=== PATIENT | male | born 1995 | race African-American/Black ===

== ENCOUNTER 2016-10-06 22:36 | Emergency (ER) | payer BC, OTHER ==
--- NOTE | 2016-10-07 00:52 | PDOC ---
History of Present Illness - History of Present Illness Initial Comments: 10/07/16 00:54 The patient is a 20 year old male, with a significant past medical history of heroin abuse, who presents to the emergency department requesting detox from heroin this evening. The patient reports his last heroin use was yesterday. He denies chest pain, shortness of breath, headache and dizziness. He denies fever, chills, nausea, vomit, diarrhea and constipation. He denies dysuria, frequency, urgency and hematuria. Allergies: NKDA <Klaudia Pepper - Last Filed: 10/07/16 00:54> - General History Source: Patient <KapilNeftaly harding - Last Filed: 10/07/16 01:14> - General Chief Complaint: Substance Abuse Stated Complaint: DETOX Time Seen by Provider: 10/07/16 00:48 Past History <Klaudia Pepper - Last Filed: 10/07/16 00:54> - Past Medical History Suicide Attempt (Hx): Yes - Psycho/Social/Smoking Cessation Hx Anxiety: No Suicidal Ideation: Yes (suicidal thoughts tonight) Smoking History: Smoker current status UNK Have you smoked in the past 12 months: Yes Hx Alcohol Use: Yes Drug/Substance Use Hx: Yes Substance Use Type: Alcohol, Cocaine, Marijuana <Neftaly Villagomez - Last Filed: 10/07/16 01:14> - Past Medical History Allergies/Adverse Reactions: Allergies Allergy/AdvReac Type Severity Reaction Status Date / Time No Known Allergies Allergy Verified 10/05/14 05:50 Home Medications: Ambulatory Orders NK [No Known Home Medication] 10/05/14 Review of Systems - Review of Systems Able to Perform ROS?: Yes Comments:: 10/07/16 00:55 CONSTITUTIONAL: Absent: fever, chills, diaphoresis, generalized weakness, malaise, loss of appetite HEENT: Absent: rhinorrhea, nasal congestion, throat pain, throat swelling, difficulty swallowing, mouth swelling, ear pain, eye pain, visual Changes CARDIOVASCULAR: Absent: chest pain, syncope, palpitations, irregular heart rate, lightheadedness , peripheral edema RESPIRATORY: Absent: cough, shortness of breath, dyspnea with exertion, orthopnea, wheezing, stridor, hemoptysis GASTROINTESTINAL: Absent: abdominal pain, abdominal distension, nausea, vomiting, diarrhea, constipation, melena, hematochezia GENITOURINARY: Absent: dysuria, frequency, urgency, hesitancy, hematuria, flank pain, genital pain MUSCULOSKELETAL: Absent: myalgia, arthralgia, joint swelling SKIN: Absent: rash, itching, pallor HEMATOLOGIC/IMMUNOLOGIC: Absent: easy bleeding, easy bruising, lymphadenopathy, frequent infections ENDOCRINE: Absent: unexplained weight gain, unexplained weight loss, heat intolerance, cold intolerance NEUROLOGIC: Absent: headache, focal weakness or paresthesias, dizziness, unsteady gait, seizure, mental status changes, bladder or bowel incontinence PSYCHIATRIC: Absent: anxiety, depression, suicidal or homicidal ideation, hallucinations. <Klaudia Pepper - Last Filed: 10/07/16 00:54> *Physical Exam - Physical Exam Comments: 10/07/16 00:55 GENERAL: Well developed, well nourished. Awake and alert. No acute distress. Not actively vomiting. HEENT: Normocephalic, atraumatic. PERRLA, EOMI. No conjunctival pallor. Sclera are non- icteric. Moist mucous membranes. Oropharynx is clear. NECK: Supple. Full ROM. No JVD. Carotid pulses 2+ and symmetric, without bruits. No thyromegaly. No lymphadenopathy. CARDIOVASCULAR: Regular rate and rhythm. No murmurs, rubs, or gallops. Distal pulses are 2+ and symmetric. PULMONARY: No evidence of respiratory distress. Lungs clear to auscultation bilaterally. No wheezing, rales or rhonchi. ABDOMINAL: Soft. Non-tender. Non-distended. No rebound or guarding. No organomegaly. Normoactive bowel sounds. MUSCULOSKELETAL Normal range of motion at all joints. No bony deformities or tenderness. No CVA tenderness. EXTREMITIES: No cyanosis. No clubbing. No edema. No calf tenderness. No piloerections. SKIN: Warm and dry. Normal capillary refill. No rashes. No jaundice. NEUROLOGICAL: Alert, awake, appropriate. Cranial nerves 2-12 intact. Normoreflexic in the upper and lower extremities. Normal speech. Toes are down-going bilaterally. Gait is normal without ataxia. PSYCHIATRIC: Cooperative. Good eye contact. Appropriate mood and affect. <Klaudia Pepper - Last Filed: 10/07/16 00:54> Medical Decision Making - Medical Decision Making 10/07/16 01:00 Dr. Villagomez: The scribe's documentation has been prepared under my direction and personally reviewed by me in its entirery. I confirm that the note above accurately reflects all work, treatment, procedures, and medical decision making performed by me. Pt medically cleared and accepted to [facility] for detox by CERTIFIED CODER. <Neftaly Villagomez - Last Filed: 10/07/16 01:14> *DC/Admit/Observation/Transfer - Attestations Scribe Attestion: 10/07/16 00:57 Documentation prepared by Klaudia Pepper, acting as medical intern for Neftaly Villagomez MD <Klaudia Pepper - Last Filed: 10/07/16 00:54> - Discharge Dispostion Admit: No <Neftaly Villagomez - Last Filed: 10/07/16 01:14> Diagnosis at time of Disposition: Heroin abuse - Discharge Dispostion Disposition: I.P. ALCOHOL/SUBS ABUSE REHAB Condition at time of disposition: Stable - Referrals Referrals: Lj Fernando MD [Primary Care Provider] - - Patient Instructions Printed Discharge Instructions: DI for Drug Abuse and Drug Addiction
[2016-10-07 01:10] VITALS: BP 121/70; PULSE 82; TEMP 97.7; BMI 21.7
== END 2016-10-07 01:20 | disposition other institution (70) ==
LOC: JER 22:36
DX: F11.10 Opioid abuse, uncomplicated (principal)
CPT/HCPCS: 99282-25

== ENCOUNTER 2016-10-07 01:32 | Inpatient (IN) | payer BC, OTHER ==
--- NOTE | 2016-10-07 01:39 | HP ---
COWS - Scale Resting Pulse: 0= ID 80 or Below Sweatin=Flushed/Facial Moisture Restless Observation: 3= Extraneous Movement Pupil Size: 2= Moderately Dilated Bone or Joint Aches: 4=Acute Joint/Muscle Pain Runny Nose/ Eye Tearin= Nasal Congestion GI Upset > 30mins: 1= Stomach Cramp Tremor Observation: 2= Slight Tremor Visible Yawning Observation: 0= None Anxiety or Irritability: 2=Irritable/Anxious Goose Flesh Skin: 0=Smooth Skin COWS Score: 17 CIWA Score - CIWA Score Nausea/Vomitin-Mild Nausea/No Vomiting Muscle Tremors: 4-Moderate,w/Arms Extend Anxiety: 4-Mod. Anxious/Guarded Agitation: 4-Moderately Restless Paroxysmal Sweats: 1-Minimal Palms Moist Orientation: 0-Oriented Tacttile Disturbances: 0-None Auditory Disturbances: 0-None Visual Disturbances: 0-None Headache: 3-Moderate CIWA-Ar Total Score: 17 Admission ROS BHS - HPI Chief Complaint: c/o withdrawal sx's. seeking detox txment Allergies/Adverse Reactions: Allergies Allergy/AdvReac Type Severity Reaction Status Date / Time No Known Allergies Allergy Verified 10/05/14 05:50 History of Present Illness: 20 Y.O. MALE WITH POLY SUBSTANCE ABUSE ADMITTED FOR OPIATE/ BENZO DETOX TXMENT. THIS IS CLIENTS FIRST TIME IN A DETOX TXMENT. REFERRED BY [facility]. REPORTS LONGEST CLEAN TIME 2 MONTHS. Exam Limitations: No Limitations - Ebola screening Have you traveled outside of the country in the last 21 days: No Have you had contact with anyone from an Ebola affected area: No Have you been sick,other than usual withdrawal symptoms: No Do you have a fever: No - Review of Systems Constitutional: Chills, Malaise, Night Sweats, Changes in sleep EENT: reports: Nose Congestion Respiratory: reports: No Symptoms reported Cardiac: reports: No Symptoms Reported GI: reports: Abdominal cramping : reports: No Symptoms Reported Musculoskeletal: reports: Back Pain Integumentary: reports: No Symptoms Reported Neuro: reports: No Symptoms reported Endocrine: reports: No Symptoms Reported Hematology: reports: No Symptoms Reported Psychiatric: reports: No Sypmtoms Reported Other Systems: Reviewed and Negative Patient History - Patient Medical History Hx Anemia: No Hx Asthma: No Hx Chronic Obstructive Pulmonary Disease (COPD): No Hx Cancer: No Hx Cardiac Disorders: No Hx Congestive Heart Failure: No Hx Hypertension: No Hx Hypercholesterolemia: No Hx Pacemaker: No HX Cerebrovascular Accident: No Hx Seizures: No Hx Dementia: No Hx Diabetes: No Hx Gastrointestinal Disorders: No Hx Liver Disease: No Hx Genitourinary Disorders: No Hx Sexually Transmitted Disorders: No Hx Renal Disease (ESRD): No Hx Thyroid Disease: No Hx Human Immunodeficiency Virus (HIV): No Hx Hepatitis C: No Hx Depression: Yes (VIIBRYD) Hx Suicide Attempt: Yes (IDEATION 2015 PRESENTLY DENIES) Hx Bipolar Disorder: No Hx Schizophrenia: No Other Medical History: ANXIETY/ INSOMNIA - Patient Surgical History Past Surgical History: Yes Other Surgical History: RECONTRUCTIVE LIP SX Anesthesia Reaction: No - PPD History Previous Implant?: Yes Documented Results: Negative w/o proof Implanted On Prior [facility] Admission?: No PPD to be Administered?: Yes - Smoking Cessation Smoking history: Current every day smoker Have you smoked in the past 12 months: Yes Aproximately how many cigarettes per day: 10 Cigars Per Day: 0 Hx Chewing Tobacco Use: No Initiated information on smoking cessation: Yes 'Breaking Loose' booklet given: 10/07/16 - Substance & Tx. History Hx Alcohol Use: No Hx Substance Use: Yes Substance Use Type: Cocaine, Heroin, Marijuana, Opiates (OXY), Tranquilizers ( KLONOPIN) Hx Substance Use Treatment: Yes ([facility] - Substances Abused HEROIN Route: Injection Frequency: Daily Amount used: 1/2 GM Age of first use: 19 Date of Last Use: 10/05/16 COCAINE Route: Injection Frequency: Daily Amount used: 1/2 GM Age of first use: 17 Date of Last Use: 10/06/16 KLONOPIN Route: Oral Frequency: 1-2 times per week Amount used: 2MG Age of first use: 19 Date of Last Use: 10/06/16 THC Route: Smoking Frequency: Daily Amount used: 1/2 GM Age of first use: 14 Date of Last Use: 10/06/16 Family Disease History - Family Disease History Family Disease History: CA: Father (PANCREATIC ), Other: Mother ( ALCOHOL / CANNABIS), Brother (CANNABIS) Admission Physical Exam BHS - Physical General Appearance: Yes: Appropriately Dressed, Mild Distress, Anxious HEENTM: Yes: EOMI, Normocephalic, Normal Voice, RODNEY, Pharynx Normal, Nasal Congestion Respiratory: Yes: Chest Non-Tender, Lungs Clear, Normal Breath Sounds, No Respiratory Distress, No Accessory Muscle Use Neck: Yes: No masses,lesions,Nodules, Supple, Trachea in good position Breast: Yes: Breast Exam Deferred Cardiology: Yes: Regular Rhythm, Regular Rate, S1, S2 Abdominal: Yes: Normal Bowel Sounds, Non Tender, Flat, Soft Genitourinary: Yes: Within Normal Limits Back: Yes: Normal Inspection Musculoskeletal: Yes: full range of Motion, Gait Steady Extremities: Yes: Normal Capillary Refill, Normal Range of Motion, Non-Tender, Tremors Neurological: Yes: top knitter II-XII NML intact, Fully Oriented, Alert, Motor Strength 5/5 Integumentary: Yes: Normal Color, Warm, Moist Lymphatic: Yes: Within Normal Limits - Diagnostic (1) Opioid dependence with withdrawal Current Visit: Yes Status: Chronic (2) Sedative, hypnotic or anxiolytic dependence with withdrawal, uncomplicated Current Visit: Yes Status: Chronic (3) Cocaine dependence, uncomplicated Current Visit: Yes Status: Chronic (4) Cannabis dependence, uncomplicated Current Visit: Yes Status: Chronic (5) Nicotine dependence Current Visit: Yes Status: Chronic Qualifiers: Nicotine product type: cigarettes Substance use status: uncomplicated Qualified Code(s): F17.210 - Nicotine dependence, cigarettes, uncomplicated Cleared for Admission [facility] - Detox or Rehab [facility] Level of Care: Medically Managed Detox Regimen/Protocol: Methadone/Librium S Breath Alcohol Content Breath Alcohol Content: 0 Vital Signs - Vital Signs Vital Signs Refused: No Temperature: 97.1 F Temperature Source: Oral Pulse Rate: 69 Respiratory Rate: 20 Blood Pressure: 113/67 BP Location: Left Arm Blood Pressure Position: Sitting - Height Height: 5 ft 8 in - Weight Weight: 59.874 kg Weight Measurement Method: Standing Scale Body Mass Index (BMI): 20.0 Urine Drug Screen - Test Device Lot Number: [id number] Expiration Date: 06/04/18 - Control Is Test Valid: Yes - Results Drug Screen Negative: No Urine Drug Screen Results: THC-Marijuana, SHYAM-Cocaine, OPI-Opiates, OXY- Oxycodone
[2016-10-07] MEDS ORDERED: P-EPHED 60MG/TRIPROLIDI 2.5MG TABLET PO PRN (01:55)
[2016-10-07] MEDS ORDERED: MENTHOL/PHENOL 1 EACH UD MM PRN (01:55)
[2016-10-07] MEDS ORDERED: LOPERAMIDE HCL 2 MG CAPSULE PO PRN (01:55)
[2016-10-07] MEDS ORDERED: MAGNESIUM CITRATE 300 ML BOTTLE PO PRN (01:55)
[2016-10-07] MEDS ORDERED: MAGNESIUM HYDROX 2400MG/30ML ORAL SUSPENSION 30 ML CUP PO PRN (01:55)
[2016-10-07] MEDS ORDERED: MAG HYDROX/AL HYDROX/SIMETH 30 ML UNIT-DOSE CUP PO PRN (01:55)
[2016-10-07] MEDS ORDERED: hydrOXYzine PAMOATE 50 MG CAPSULE (FP) PO PRN (01:55)
[2016-10-07] MEDS ORDERED: chlordiazePOXIDE HCL 25 MG CAPSULE PO PRN (01:55)
[2016-10-07] MEDS ORDERED: diphenhydrAMINE HCL 50 MG CAPSULE PO PRN (01:55)
[2016-10-07] MEDS ORDERED: guaiFENesin/D-METHORPHAN HB 10 ML UNIT-DOSE CUPS PO PRN (01:55)
[2016-10-07] MEDS ORDERED: METHADONE HCL 10 MG TABLET (FOR DETOX USE ONLY) PO ONE ×3 (01:55→22:00)
[2016-10-07] MEDS ORDERED: chlordiazePOXIDE HCL 25 MG CAPSULE PO ONE (01:55)
[2016-10-07] MEDS ORDERED: ACETAMINOPHEN 325 MG TABLET (FP) PO PRN (01:55)
[2016-10-07] MEDS ORDERED: NICOTINE POLACRILEX 2 MG GUM BC PRN (01:55)
[2016-10-07] MEDS ORDERED: IBUPROFEN 400 MG TABLET (FP) PO PRN (01:55)
[2016-10-07] MEDS: chlordiazePOXIDE HCL 25 MG CAPSULE PO SCH ×4 (06:42→22:24)
[2016-10-07 09:51] LABS: MCH 26.8 pg (25.7-33.7); MCHC 32.7 g/dl (32.0-35.9); MEAN CELL VOLUME 82.1 fl (80-96); MEAN PLT VOLUME 7.7 fl (7.5-11.1); PLATELET COUNT 222 K/MM3 (134-434); RDW 14.1 % (11.9-15.9); WHITE BLOOD COUNT 9.3 K/mm3 (4.0-10.0)
[2016-10-07 09:52] LABS: ALBUMIN 3.4 g/dl (3.4-5.0); ANION GAP 9 (8-16); BILIRUBIN,TOTAL 0.7 mg/dL (0.2-1.0); CALCIUM 8.8 mg/dL (8.5-10.1); CO2 30 mmol/L (21-32); CREATININE 0.8 mg/dL (0.7-1.3); GLUCOSE,RANDOM 93 mg/dL (74-106); SGOT/AST 33 U/L (15-37); SGPT/ALT 38 U/L (12-78); TOT PROT 6.7 g/dl (6.4-8.2)
[2016-10-07 09:53] LABS: ALK PHOS 130 U/L (45-117)
[2016-10-07] MEDS: PRENATAL VITAMINS W/ FOLIC ACID TABLET (FP) PO SCH (11:11)
[2016-10-07] MEDS: NICOTINE 14 MG/24 HOURS TOPICAL PATCH TD SCH (11:13)
--- NOTE | 2016-10-07 11:44 | PN ---
S CIWA - CIWA Score Nausea/Vomitin-No Nausea/No Vomiting Muscle Tremors: 4-Moderate,w/Arms Extend Anxiety: 3 Agitation: 4-Moderately Restless Paroxysmal Sweats: 3 Orientation: 0-Oriented Tacttile Disturbances: 0-None Auditory Disturbances: 0-None Visual Disturbances: 0-None Headache: 0-None Present CIWA-Ar Total Score: 14 BHS COWS - Scale Resting Pulse: 0= [place] 80 or Below Sweatin=Flushed/Facial Moisture Restless Observation: 1= Difficult to Sit Still Pupil Size: 0= Normal to Room Light Bone or Joint Aches: 2= Severe Diffuse Aches Runny Nose/ Eye Tearin= Nasal Congestion GI Upset > 30mins: 0= None Tremor Observation of Outstretched Hands: 2= Slight Tremor Visible Yawning Observation: 2= >3x During Session Anxiety or Irritability: 2=Irritable/Anxious Goose Flesh Skin: 3=Piloerection COWS Score: 15 S Progress Note (SOAP) Subjective: sweats irritable tired agitation Objective: 10/07/16 11:47 Vital Signs Temperature 97.1 F L 10/07/16 01:55 Pulse Rate 69 10/07/16 01:55 Respiratory Rate 20 10/07/16 01:55 Blood Pressure 113/67 10/07/16 01:55 O2 Sat by Pulse Oximetry (%) Laboratory Tests 10/07/16 10/07/16 07:00 07:00 WBC 9.3 RBC 5.15 Hgb 13.8 D Hct 42.3 MCV 82.1 MCHC 32.7 RDW 14.1 Plt Count 222 MPV 7.7 Sodium 143 Potassium 4.2 Chloride 104 Carbon Dioxide 30 Anion Gap 9 BUN 12 D Creatinine 0.8 Creat Clearance w eGFR > 60 Random Glucose 93 Calcium 8.8 Total Bilirubin 0.7 D AST 33 D ALT 38 D Alkaline Phosphatase 130 H D Total Protein 6.7 Albumin 3.4 D labs pending awake/alert ambulating no acute distress Assessment: 10/07/16 11:47 withdrawal sx Plan: continue detox increase fluids f/u pending labs
--- NOTE | 2016-10-07 14:08 | CONSULT ---
[facility] Psychiatric Consult - Data Date of interview: 10/07/16 Admission source: [facility] Identifying data: First admission to [facility] for this 20 y/o male seeking detox treatment for heroin,cannabis,benzodiazepine and cocaine dependence.Patient is single without children,domiciled,unemployed and reportedly employed. Substance Abuse History: - Smoking Cessation. Smoking history: Current every day smoker. Have you smoked in the past 12 months: Yes. Aproximately how many cigarettes per day: 10. Cigars Per Day: 0. Hx Chewing Tobacco Use: No. Initiated information on smoking cessation: Yes. 'Breaking Loose' booklet given : 10/07/16. - Substance & Tx. History. Hx Alcohol Use: No. Hx Substance Use: Yes. Substance Use Type: Cocaine, Heroin, Marijuana, Opiates (OXY), Tranquilizers (KLONOPIN). Hx Substance Use Treatment: Yes ([facility] - Substances Abused. HEROIN. Route: Injection. Frequency: Daily. Amount used: 1/2 GM. Age of first use: 19. Date of Last Use: 10/05/16. COCAINE. Route: Injection. Frequency: Daily. Amount used: 1/2 GM. Age of first use: 17. Date of Last Use: 10/06/16. KLONOPIN. Route: Oral. Frequency: 1-2 times per week. Amount used: 2MG. Age of first use: 19. Date of Last Use: 09/19. THC. Route: Smoking. Frequency: Daily. Amount used: 1/2 GM. Age of first use: 14. Date of Last Use: 10/06/16. Confirmed by patient. Medical History: No reported medical problems. Psychiatric History: Diagnosed with MMD and presenting with a history of one psychiatric hospitalization at [facility] in October 2012.Prescribed xanax and sonata as per self-report.Mr Anguiano indicates that he gets his outpatient psychiatric services at a community health center in [facility].He denies history of suicide attempts. Physical/Sexual Abuse/Trauma History: Patient denies. Additional Comment: Urine Drug Screen Results: THC-Marijuana, SHYAM-Cocaine, OPI- Opiates, OXY-Oxycodone.Noted. Mental Status Exam - Mental Status Exam Alert and Oriented to: Time, Place, Person Cognitive Function: Good Patient Appearance: Well Groomed Mood: Nervous, Withdrawn Affect: Mood Congruent Patient Behavior: Sedated, Fatigued, Cooperative Speech Pattern: Clear, Delayed Voice Loudness: Moderately Soft/Quiet Thought Process: Goal Oriented Thought Disorder: Not Present Hallucinations: Denies Suicidal Ideation: Denies Homicidal Ideation: Denies Insight/Judgement: Poor Sleep: Fair Appetite: Fair Muscle strength/Tone: Normal Gait/Station: Normal Psychiatric Findings - Problem List ([place] 1, 2,3) (1) Opioid dependence with withdrawal Current Visit: Yes Status: Acute (2) Cannabis dependence, uncomplicated Current Visit: Yes Status: Acute (3) Cocaine dependence, uncomplicated Current Visit: Yes Status: Acute (4) Sedative, hypnotic or anxiolytic dependence with withdrawal, uncomplicated Current Visit: Yes Status: Acute (5) Nicotine dependence Current Visit: Yes Status: Acute Qualifiers: Nicotine product type: cigarettes Substance use status: uncomplicated Qualified Code(s): F17.210 - Nicotine dependence, cigarettes, uncomplicated (6) Substance induced mood disorder Current Visit: Yes Status: Acute (7) Insomnia Current Visit: Yes Status: Chronic - Initial Treatment Plan Initial Treatment Plan: Psychoeducation.Detoxification.Insomnia is addressed with benadryl 50 mg po hs prn.Brief explanation about side effects/ benefits.Agreed.Observation.
[2016-10-07] MEDS ORDERED: THIAMINE HCL 100 MG TABLET (FP) PO SCH (22:00)
--- NOTE | 2016-10-07 23:37 | EKG ---
Test Reason : Blood Pressure : / mmHG Vent. Rate : 062 BPM Atrial Rate : 062 BPM P-R Int : 162 ms QRS Dur : 088 ms QT Int : 436 ms P-R-T Axes : 017 070 048 degrees QTc Int : 442 ms NORMAL SINUS RHYTHM NORMAL ECG NO PREVIOUS ECGS AVAILABLE Confirmed by NEW SMITH MD ([id number]) on 10/07/2016 11:36:42 PM Referred By: Confirmed By:NEW SMITH MD
[2016-10-08 00:16] LABS: URINE APPEARANCE CLEAR; URINE BILIRUBIN NEGATIVE (NEGATIVE); URINE BLOOD NEGATIVE (NEGATIVE); URINE COLOR LTYELLOW; URINE GLUCOSE (UA) NEGATIVE (NEGATIVE); URINE KETONE NEGATIVE (NEGATIVE); URINE LEUK ESTERASE NEGATIVE (NEGATIVE); URINE NITRITE NEGATIVE (NEGATIVE); URINE PROTEIN NEGATIVE (NEGATIVE); URINE UROBILINOGEN NEGATIVE E.U./dl (0.2-1.0)
[2016-10-08] MEDS: chlordiazePOXIDE HCL 25 MG CAPSULE PO SCH ×2 (05:35→10:55)
[2016-10-08 09:53] VITALS: BP 124/57; PULSE 61; TEMP 98.1
[2016-10-08] MEDS ORDERED: METHADONE HCL 5 MG TABLET (FOR DETOX USE ONLY) PO SCH (10:00)
[2016-10-08] MEDS: PRENATAL VITAMINS W/ FOLIC ACID TABLET (FP) PO SCH (10:55)
[2016-10-08] MEDS: NICOTINE 14 MG/24 HOURS TOPICAL PATCH TD SCH (10:56)
--- NOTE | 2016-10-08 11:11 | DS ---
[facility] Detox Discharge Summary Admission Date: 10/07/16 Discharge Date: 10/08/16 - History Present History: Alcohol Dependence, Cannabis Dependence, Cocaine Dependence, Opioid Dependence, Sedative Dependence - Physical Exam Results Vital Signs: Vital Signs Temperature 98.1 F 10/08/16 09:52 Pulse Rate 61 10/08/16 09:52 Respiratory Rate 18 10/08/16 09:52 Blood Pressure 124/57 10/08/16 09:52 O2 Sat by Pulse Oximetry (%) - Treatment Hospital Course: Detox Protocol Followed, Detoxed Safely, Responded well, Discharged Condition Good - Medication Discharge Medications: Ambulatory Orders NK [No Known Home Medication] 10/05/14 - Diagnosis (1) Cannabis dependence, uncomplicated Current Visit: Yes Status: Chronic (2) Cocaine dependence, uncomplicated Current Visit: Yes Status: Chronic (3) Nicotine dependence Current Visit: Yes Status: Chronic Qualifiers: Nicotine product type: cigarettes Substance use status: uncomplicated Qualified Code(s): F17.210 - Nicotine dependence, cigarettes, uncomplicated (4) Opioid dependence with withdrawal Current Visit: Yes Status: Chronic (5) Sedative, hypnotic or anxiolytic dependence with withdrawal, uncomplicated Current Visit: Yes Status: Chronic (6) Cocaine abuse Current Visit: Yes Status: Chronic - AMA Did Patient Leave Against Medical Advice: Yes (i just want to leave)
[2016-10-08 15:41] LABS: HIV 1 & 2 AB NEGATIVE; HIV 1 AGp24 NEGATIVE
[2016-10-09] MEDS ORDERED: chlordiazePOXIDE 5 MG CAPSULE PO SCH (05:00)
[2016-10-09] MEDS ORDERED: METHADONE HCL 5 MG TABLET (FOR DETOX USE ONLY) PO SCH (10:00)
[2016-10-10] MEDS ORDERED: chlordiazePOXIDE HCL 10 MG CAPSULE PO SCH (05:00)
[2016-10-11] MEDS ORDERED: METHADONE HCL 10 MG TABLET (FOR DETOX USE ONLY) PO SCH (10:00)
[2016-10-12] MEDS ORDERED: METHADONE HCL 10 MG TABLET (FOR DETOX USE ONLY) PO SCH (06:00)
== END 2016-10-08 11:14 | disposition left against medical advice (07) | DRG 743 ==
LOC: YASAS 01:32 → Y6N 01:36
PROVIDERS: ADMIT Internal Medicine; ATTEND Internal Medicine
PROC: HZ2ZZZZ Detoxification Services for Substance Abuse Treatment (ICD-10-PCS; principal; 2016-10-07)
DX: F11.23 Opioid dependence with withdrawal (principal); F13.230 Sedative, hypnotic or anxiolytic dependence with withdrawal, uncomplicated; F14.20 Cocaine dependence, uncomplicated; F12.20 Cannabis dependence, uncomplicated; F17.210 Nicotine dependence, cigarettes, uncomplicated; F19.24 Other psychoactive substance dependence with psychoactive substance-induced mood disorder; G47.00 Insomnia, unspecified
CPT/HCPCS: 36415; 80053; 81003; 85027; 86593; 87389; 93005; 93010

== ENCOUNTER 2016-11-26 17:09 | Inpatient (IN) | payer BC, MEDICARE, OTHER ==
--- NOTE | 2016-11-26 18:30 | PDOC ---
History of Present Illness <Alexis Pollock - Last Filed: 11/26/16 20:23> - General History Source: Patient, Parent(s) (Mother) Exam Limitations: No Limitations - History of Present Illness Initial Comments: 11/26/16 20:36 The patient is a 21 year old male, with a significant past medical history of IV Drug abuse (Cocaine and Heroin) who presents to the emergency department with diffuse body aches, generalized weakness and fever (Tmax 102) for the past 5 days. The patient states his body aches gradually began 5 days ago however today it has worsened. Patient states his fever is associated with night sweats , headache, and chest pain. The patient reports his mid sternal chest pain, 4/ 10 in severity, is exacerbated upon deep inspiration and is associated with a dry cough however denies any radiation or SOB, numbness. The patient also states his fingertips are extremely painful with sores which began 2 days ago. The patient also reports one episode of vomiting yesterday (nonbilious, nonbloody) with associated nausea and minimal abdominal pain near the umbilical area. The patient also notes his urine is darker than usual. Patient denies sick contacts, recent illnesses or recent travel. He denies dizziness or constipation. He denies dysuria, frequency, urgency or hematuria. Note: Patient states he last used Heroin earlier today afternoon around 2 PM. Patient states he started using heroin 1 yr ago. However denies using cocaine which he began using 2.5 years ago. Allergies: NKA Past surgical history: None Social history: Heroin, Cocaine and Everyday tobacco use 10 cigarettes daily) PCP: None <Nehal Ramos - Last Filed: 11/27/16 01:38> - General Chief Complaint: Weakness Stated Complaint: WEAKNESS Time Seen by Provider: 11/26/16 18:30 Past History - Past Medical History Anemia: No Asthma: No Cancer: No Cardiac Disorders: No CVA: No COPD: No CHF: No Dementia: No Diabetes: No GI Disorders: No Disorders: No HTN: No Hypercholesterolemia: No Kidney Stones: No Liver Disease: No Suicide Attempt (Hx): No Seizures: No Thyroid Disease: No - Surgical History Abdominal Surgery: No Appendectomy: No Cardiac Surgery: No Cholecystectomy: No Lung Surgery: No Neurologic Surgery: No Orthopedic Surgery: No - Reproductive History Testicular Surgery: No - Psycho/Social/Smoking Cessation Hx Anxiety: Yes Suicidal Ideation: No Smoking History: Current every day smoker Have you smoked in the past 12 months: Yes Number of Cigarettes Smoked Daily: 10 Cigars Per Day: 0 Information on smoking cessation initiated: No 'Breaking Loose' booklet given: 10/07/16 Hx Alcohol Use: Yes (SOCIAL) Drug/Substance Use Hx: No Substance Use Type: Heroin Hx Substance Use Treatment: Yes ([place]) <Alexis Pollock - Last Filed: 11/26/16 20:23> <Nehal Ramos - Last Filed: 11/27/16 01:38> - Past Medical History Allergies/Adverse Reactions: Allergies Allergy/AdvReac Type Severity Reaction Status Date / Time No Known Allergies Allergy Verified 11/26/16 17:19 Home Medications: Ambulatory Orders Clonazepam [KlonoPIN] 0.5 mg PO DAILY PRN 11/26/16 Review of Systems - Review of Systems Able to Perform ROS?: Yes Comments:: 11/26/16 20:37 GENERAL/CONSTITUTIONAL: +fever or chills. + weakness. HEAD, EYES, EARS, NOSE AND THROAT: No change in vision. No ear pain or discharge. No sore throat. CARDIOVASCULAR: +chest pain. No shortness of breath. RESPIRATORY: + cough. No wheezing, or hemoptysis. GASTROINTESTINAL: + nausea, vomiting, diarrhea. No constipation. GENITOURINARY: No dysuria, frequency, or change in urination. MUSCULOSKELETAL: No joint or muscle swelling or pain. No neck or back pain. SKIN: + sores on bilateral hands. No rash NEUROLOGIC: + headache. No vertigo, loss of consciousness, or change in strength /sensation. ENDOCRINE: No increased thirst. No abnormal weight change. HEMATOLOGIC/LYMPHATIC: No anemia, easy bleeding, or history of blood clots. ALLERGIC/IMMUNOLOGIC: No hives or skin allergy. <Nehal Ramos - Last Filed: 11/27/16 01:38> *Physical Exam - Vital Signs Last Vital Signs Temp Pulse Resp BP Pulse Ox 97.4 F L 133 H 20 119/77 98 11/26/16 17:14 11/26/16 17:14 11/26/16 17:14 11/26/16 17:14 11/26/16 17:14 <Alexis Pollock - Last Filed: 11/26/16 20:23> - Vital Signs Last Vital Signs Temp Pulse Resp BP Pulse Ox 102.5 F H 123 H 23 114/65 100 11/26/16 19:08 11/26/16 19:46 11/26/16 19:46 11/26/16 19:46 11/26/16 19:46 - Physical Exam Comments: 11/26/16 20:37 ADULT EXAM GENERAL: Awake, alert, and fully oriented, in no moderate distress. HEAD: No signs of trauma EYES: PERRLA, EOMI, sclera anicteric, + pale conjuctiva. ENT: + Dry mucous membranes. Auricles normal inspection, hearing grossly normal , nares patent, oropharynx clear without exudates. NECK: Normal ROM, supple, no lymphadenopathy, JVD, or masses LUNGS: Breath sounds equal, clear to auscultation bilaterally. No wheezes, and no crackles HEART: + Tachycardia. + systolic murmur 2/6. Normal S1 and S2, no murmurs, rubs or gallops ABDOMEN: Soft, nontender, +hypoactive bowel sounds. No guarding, no rebound. No masses EXTREMITIES: no splinter hemorrhages + Janeway lesions on bilateral palms. Normal range of motion, no edema. No clubbing or cyanosis. No cords, erythema, or tenderness NEUROLOGICAL: Cranial nerves II through XII grossly intact. Normal speech, normal gait SKIN: Iv sites on L and R antecubital fossa with scarring. No drainage not warm to touch.Warm, Dry, normal turgor, no rashes or lesions noted. <Nehal Ramos - Last Filed: 11/27/16 01:38> Heart Score/ECG Review #1 11/26/16 20:[address] Maris Hillman. rate 122 bpm Sinus tachycardia Biatrial enlargement Abnormal ECG TX Interval 136 ms QRS Duration 86 ms QT/QTc 318/453 P-R-T axes 66 70 63 <Nehal Ramos - Last Filed: 11/27/16 01:38> ED Treatment Course - LABORATORY CBC & Chemistry Diagram: 11/26/16 18:35 11/26/16 18:35 <Alexis Pollock - Last Filed: 11/26/16 20:23> - LABORATORY CBC & Chemistry Diagram: 11/26/16 18:35 11/26/16 18:35 - ADDITIONAL ORDERS Additional order review: Laboratory Results 11/26/16 11/26/16 11/26/16 19:05 18:45 18:35 INR VBG pH 7.43 H POC VBG pCO2 39.8 POC VBG pO2 46.1 Mixed VBG HCO3 26.1 H Sodium 133 L Potassium 4.1 Chloride 94 L Carbon Dioxide 24 Anion Gap 15 BUN 18 D Creatinine 0.9 Creat Clearance w eGFR > 60 Random Glucose 143 H D Lactic Acid 2.2 H* Calcium 8.5 Total Bilirubin 1.1 H D AST 57 H D ALT 64 D Alkaline Phosphatase 281 H D Creatine Kinase 112 Troponin I 1.11 H* Total Protein 7.1 Albumin 2.9 L 11/26/16 18:35 INR 1.41 H VBG pH POC VBG pCO2 POC VBG pO2 Mixed VBG HCO3 Sodium Potassium Chloride Carbon Dioxide Anion Gap BUN Creatinine Creat Clearance w eGFR Random Glucose Lactic Acid Calcium Total Bilirubin AST ALT Alkaline Phosphatase Creatine Kinase Troponin I Total Protein Albumin 11/26/16 18:35 RBC 5.14 MCV 78.8 L MCHC 32.5 RDW 14.3 MPV 8.7 D Neutrophils % 93.0 H D Lymphocytes % 3.0 L D Monocytes % 1.0 L D - Medications Given in the ED: ED Medications Discontinued Medications Generic Name Dose Route Start Last Admin Trade Name Rishiq PRN Reason Stop Dose Admin Acetaminophen 1,000 mg 11/26/16 18:48 11/26/16 19:02 Ofirmev Injection - IVPB 11/26/16 18:49 Not Given ONCE ONE Acetaminophen 975 mg 11/26/16 18:58 11/26/16 19:02 Tylenol - PO 11/26/16 18:59 975 mg ONCE ONE Administration Vancomycin HCl 1,000 mg/ 250 mls @ 250 mls/hr 11/26/16 18:43 11/26/16 19:45 Dextrose IVPB 11/26/16 19:42 250 mls/hr ONCE ONE Administration Protocol Piperacillin Sod/Tazobactam Sod 3.375 gm 11/26/16 18:43 11/26/16 19:02 Zosyn 3.375gm Ivpb (Pre-Docked) IV 11/26/16 18:44 3.375 gm ONCE ONE Administration Protocol Sodium Chloride 1,179 ml 11/26/16 18:35 11/26/16 18:56 Normal Saline - IV 11/26/16 18:36 1,179 ml ONCE STA Administration <Nehal Ramos - Last Filed: 11/27/16 01:38> Medical Decision Making - Medical Decision Making 11/27/16 01:36 Chest Xray IMPRESSION: Questionable viral pneumonia or mild noncardiogenic pulmonary edema. Nonspecific minimal pelvic free fluid, possibly physiologic THIS DOCUMENT HAS BEEN ELECTRONICALLY SIGNED Bill Leon MD EXAM: CT thoracic spine without contrast and CT lumbar spine without contrast IMPRESSION: Normal thoracic spine. Minimal bulging of the L3/4 and L5/S1 discs without mass effect. Bill Leon MD <Nehal Ramos - Last Filed: 11/27/16 01:38> *DC/Admit/Observation/Transfer - Discharge Dispostion Admit: Yes - Attestations Physician Attestion: 11/26/16 18:30 I, Dr. Alexis Pollock, attest that this document has been prepared under my direction and personally reviewed by me in its entirety. I further attest, that it accurately reflects all work, treatment, procedures and medical decision -making performed by me. <Alexis Pollock - Last Filed: 11/26/16 20:23> - Attestations Scribe Attestion: 11/26/16 20:38 Documentation prepared by Nehal Ramos, acting as biomedical manager for Alexis Pollock MD/DO. <Nehal Ramos - Last Filed: 11/27/16 01:38> Diagnosis at time of Disposition: Fever Qualifiers: Fever type: unspecified Qualified Code(s): R50.9 - Fever, unspecified Infectious endocarditis Qualifiers: Infective endocarditis organism: bacterial Chronicity: acute Qualified Code(s) : I33.0 - Acute and subacute infective endocarditis - Discharge Dispostion Disposition: HOME Condition at time of disposition: Good
[2016-11-26] MEDS ORDERED: SODIUM CHLORIDE 0.9% 1000 ML INFUS.BAG IV PRN (18:35)
[2016-11-26] MEDS ORDERED: SODIUM CHLORIDE 0.9% 1000 ML INFUS.BAG IV STA (18:35)
[2016-11-26] MEDS ORDERED: VANCOMYCIN 1,000 MG in DEXTROSE 5%-WATER - 250 ML IVPB ONE (18:43)
[2016-11-26] MEDS ORDERED: PIPERACILLIN/TAZOB 3.375 GM/50 ML PRE-DOCKED IV ONE (18:43)
[2016-11-26 18:45] LABS: MCH 25.6 pg (25.7-33.7); MCHC 32.5 g/dl (32.0-35.9); MEAN CELL VOLUME 78.8 fl (80-96); MEAN PLT VOLUME 8.7 fl (7.5-11.1); PLATELET COUNT 131 K/MM3 (134-434); RDW 14.3 % (11.9-15.9); WHITE BLOOD COUNT 29.1 K/mm3 (4.0-10.0)
[2016-11-26] MEDS ORDERED: ACETAMINOPHEN 1000 MG/100 ML VIAL (NON FORMULARY) IVPB ONE (18:48)
[2016-11-26] MEDS ORDERED: ACETAMINOPHEN 325 MG TABLET (FP) ONE (18:49)
[2016-11-26 18:54] LABS: INR 1.41 (0.82-1.09); PROTHROMBIN TIME (PATIENT) 15.6 SEC (9.98-11.88)
[2016-11-26] MEDS ORDERED: PIPERACILLIN/TAZOB 3.375 GM 50 ML IVPB ONE (18:57)
[2016-11-26] MEDS ORDERED: ACETAMINOPHEN 325 MG TABLET (FP) PO ONE (18:58)
[2016-11-26 19:09] LABS: VENOUS PH 7.43 (7.32-7.42)
[2016-11-26 19:10] LABS: VENOUS BLOOD GAS HCO3 26.1 meq/L (19-25)
[2016-11-26 19:31] LABS: ALBUMIN 2.9 g/dl (3.4-5.0); ANION GAP 15 (8-16); CALCIUM 8.5 mg/dL (8.5-10.1); CO2 24 mmol/L (21-32); COCKROFT - GAULT 109.19; CREATININE 0.9 mg/dL (0.7-1.3); GLUCOSE,RANDOM 143 mg/dL (74-106); SGPT/ALT 64 U/L (12-78); TOT PROT 7.1 g/dl (6.4-8.2)
[2016-11-26] MEDS ORDERED: VANCOMYCIN 1 GRAM (PRE-DOCKED) 250 ML IVPB ONE (19:35)
[2016-11-26 19:45] LABS: ALK PHOS 281 U/L (45-117); BILIRUBIN,TOTAL 1.1 mg/dL (0.2-1.0)
[2016-11-26 19:47] LABS: SGOT/AST 57 U/L (15-37)
[2016-11-26 19:48] LABS: TROPONIN I 1.11 ng/ml (0.00-0.05)
[2016-11-26 20:07] LABS: HIV 1 & 2 AB NEGATIVE; HIV 1 AGp24 NEGATIVE
[2016-11-26 20:14] LABS: PLATELET ESTIMATE SLT DECREASED (NORMAL)
[2016-11-26 21:10] LABS: URINE APPEARANCE CLEAR; URINE BILIRUBIN NEGATIVE (NEGATIVE); URINE COLOR YELLOW; URINE GLUCOSE (UA) NEGATIVE (NEGATIVE); URINE KETONE TRACE (NEGATIVE); URINE LEUK ESTERASE NEGATIVE (NEGATIVE); URINE NITRITE NEGATIVE (NEGATIVE); URINE UROBILINOGEN NEGATIVE E.U./dl (0.2-1.0)
[2016-11-26 21:14] LABS: URINE BLOOD 2+ (NEGATIVE); URINE PROTEIN 1+ (NEGATIVE)
[2016-11-26 21:39] LABS: URINE RBC 2 /hpf (0-3); URINE WBC 8 /hpf (3-5)
[2016-11-26] MEDS ORDERED: KETOROLAC TROMETHAMINE 30 MG/1 ML VIAL IVPUSH ONE (21:50)
[2016-11-26] MEDS ORDERED: KETOROLAC TROMETHAMINE 30 MG/1 ML VIAL ONE (21:53)
--- NOTE | 2016-11-26 22:47 | HP ---
CHIEF COMPLAINT: body aches, fever PCP: none HISTORY OF PRESENT ILLNESS: This is a 21 year old male with a past medical history significant for heart murmur as a child and IVDA who presented to the ED with a 5 day history of body aches, chills, ?fevers, night sweats. He noted red spots on bilat palms about 2 days ago. He reports that he uses both heroin and cocaine IV. Last use of heroin was today around 2pm. Last cocaine use was one week ago as per pt. He states that he usually uses clean needles, but occasionally reuses them. He denies using saliva to lubricate the needle, only alcohol, but reports licking the injection site after injection if it is bleeding. He denies headache or back pain at present. Pain is localized to both hands and fingers and he reports pain to right calf. ER course was notable for: (1) WBC 29.1, Lactic acid 2.2 (2) Na 133 (3) Recent Travel: pt denies PAST MEDICAL HISTORY: heart murmur as a child depression and anxiety- was on viibryd and klonopin but stopped taking as no longer able to afford visits to psychiatrist PAST SURGICAL HISTORY: pt and mother deny any previous surgery Social History: Smokin/2 ppd Alcohol: pt denies Drugs: heroin-approx 1/3-1/2g/day habit, Also + cocaine Family History: father age 61, pancreatic CA (recently passed) mother alive and well brother alive and well paternal grandfather prostate CA Allergies No Known Allergies Allergy (Verified 11/26/16 17:19) HOME MEDICATIONS: 3 Medication Instructions Recorded Clonazepam [KlonoPIN] 0.5 mg PO DAILY PRN 11/26/16 REVIEW OF SYSTEMS CONSTITUTIONAL: Present: fever, chills, malaise Absent: diaphoresis, generalized weakness, loss of appetite, weight change HEENT: Absent: rhinorrhea, nasal congestion, throat pain, throat swelling, difficulty swallowing, mouth swelling, ear pain, eye pain, visual changes CARDIOVASCULAR: Present: chest pain Absent: syncope, palpitations, irregular heart rate, lightheadedness, peripheral edema RESPIRATORY: Absent: cough, shortness of breath, dyspnea with exertion, orthopnea, wheezing, stridor, hemoptysis GASTROINTESTINAL: Absent: abdominal pain, abdominal distension, nausea, vomiting, diarrhea, constipation, melena, hematochezia GENITOURINARY: Absent: dysuria, frequency, urgency, hesitancy, hematuria, flank pain, genital pain MUSCULOSKELETAL: Absent: myalgia, arthralgia, joint swelling, back pain, neck pain SKIN: Absent: rash, itching, pallor HEMATOLOGIC/IMMUNOLOGIC: Absent: easy bleeding, easy bruising, lymphadenopathy, frequent infections ENDOCRINE: Absent: unexplained weight gain, unexplained weight loss, heat intolerance, cold intolerance NEUROLOGIC: Absent: headache, focal weakness or paresthesias, dizziness, unsteady gait, seizure, mental status changes, bladder or bowel incontinence PSYCHIATRIC: Absent: anxiety, depression, suicidal or homicidal ideation, hallucinations. PHYSICAL EXAMINATION Vital Signs - 24 hr 3 11/26/16 11/26/16 11/26/16 17:14 18:54 19:08 Temperature 97.4 F L 102.5 F H Pulse Rate 133 H Pulse Rate [ 117 H Apical] Respiratory 20 24 Rate Blood Pressure 119/77 Blood Pressure 123/74 [Right Arm] O2 Sat by Pulse 98 99 99 Oximetry (%) 11/26/16 11/26/16 19:46 21:58 Temperature Pulse Rate Pulse Rate [ 123 H Apical] Respiratory 23 Rate Blood Pressure 84/62 Blood Pressure 114/65 [Right Arm] O2 Sat by Pulse 100 Oximetry (%) GENERAL: Awake, alert, and fully oriented, in no acute distress. HEAD: Normal with no signs of trauma. EYES: Pupils equal, round and reactive to light, extraocular movements intact, sclera anicteric, conjunctiva clear. No lid lag. EARS, NOSE, THROAT: Ears normal, nares patent, oropharynx clear without exudates. Moist mucous membranes. NECK: Normal range of motion, supple without lymphadenopathy, JVD, or masses. LUNGS: Breath sounds equal, clear to auscultation bilaterally. No wheezes, and no crackles. No accessory muscle use. HEART: Regular rate and rhythm, normal S1 and S2 without rub or gallop. 3/6 systolic ejection murmur, loudest @3rd ICS, LSB ABDOMEN: Soft, nontender, not distended, normoactive bowel sounds, no guarding, no rebound, no masses. No hepatomegaly or splenomegaly. MUSCULOSKELETAL: Normal range of motion at all joints. No bony deformities or tenderness. No CVA tenderness. UPPER EXTREMITIES: 2+ pulses, warm, well-perfused. No cyanosis. No clubbing. No peripheral edema. LOWER EXTREMITIES: 2+ pulses, warm, well-perfused. No calf tenderness L LEG, + TENDER RIGHT. No peripheral edema. NEUROLOGICAL: Cranial nerves II-XII intact. Normal speech. Normal gait. PSYCHIATRIC: Cooperative. Good eye contact. Appropriate mood and affect. SKIN: Warm, dry, normal turgor, no rashes or lesions noted, normal capillary refill. BILAT HANDS WITH JANEWAY LESIONS, NONTENDER, ERYTHMETOUS, MACULAR LESIONS Laboratory Results - last 24 hr 3 11/26/16 11/26/16 11/26/16 11/26/16 11/26/16 11/26/16 18:35 18:35 18:35 18:45 18:54 19:05 WBC 29.1 H D RBC 5.14 Hgb 13.2 Hct 40.5 MCV 78.8 L MCHC 32.5 RDW 14.3 Plt Count 131 L D MPV 8.7 D Neutrophils % 93.0 H D Lymphocytes % 3.0 L D Monocytes % 1.0 L D Band Neutrophils 3.0 Platelet Estimate Slt decreased INR 1.41 H VBG pH 7.43 H POC VBG pCO2 39.8 POC VBG pO2 46.1 Mixed VBG HCO3 26.1 H Sodium 133 L Potassium 4.1 Chloride 94 L Carbon Dioxide 24 Anion Gap 15 BUN 18 D Creatinine 0.9 Creat Clearance w eGFR > 60 Random Glucose 143 H D Lactic Acid 2.2 H* Calcium 8.5 Total Bilirubin 1.1 H D AST 57 H D ALT 64 D Alkaline Phosphatase 281 H D Creatine Kinase 112 Troponin I 1.11 H* Total Protein 7.1 Albumin 2.9 L Urine Color Urine Appearance Urine pH Urine Protein Urine Glucose (UA) Urine Ketones Urine Blood Urine Nitrite Urine Bilirubin Urine Urobilinogen Ur Leukocyte Esterase Urine RBC Urine WBC Ur Epithelial Cells HIV 1&2 Antibody Screen Negative HIV P24 Antigen Negative 3 Urine Color Yellow 11/26/16 20:56 Urine Appearance Clear 11/26/16 20:56 Urine pH 6.0 (5.0-8.0) D 11/26/16 20:56 Urine Protein 1+ (NEGATIVE) H 11/26/16 20:56 Urine Glucose (UA) Negative (NEGATIVE) 11/26/16 20:56 Urine Ketones Trace (NEGATIVE) H 11/26/16 20:56 Urine Blood 2+ (NEGATIVE) H 11/26/16 20:56 Urine Nitrite Negative (NEGATIVE) 11/26/16 20:56 Urine Bilirubin Negative (NEGATIVE) 11/26/16 20:56 Ur Leukocyte Esterase Negative (NEGATIVE) 11/26/16 20:56 Urine RBC 2 /hpf (0-3) 11/26/16 20:56 Urine WBC 8 /hpf (3-5) 11/26/16 20:56 Ur Epithelial Cells Rare /hpf (FEW) 11/26/16 20:56 ECG: ASSESSMENT/PLAN: 21yM with PMH heart murmur, IVDA presented to ED with 5 day h/o generalized body aches, malaise, fever, chills presented to ED. He is being admitted for further treatment and evaluation. Bacterial endocarditis - DW Bobde, cont zosyn and vanco - CT chest, abd, pelvis and spine to r/o seeding elsewhere - trop elevated, trend same, cardiology consult ordered - echo - cont telemetry monitoring Left calf pain - doppler ordered Heroin dependence - methadone 10mg x 1 in am, detox consult for further management Tobacco dependence - nicotine patch 7mg ordered DVT PPX - heparin 5000u TID FEN - NS @ 125cc/hr - BMP in am - Regular diet as tolerated Dispo: Pt currently requires inpatient care for management of his emergent condition. Visit type - Emergency Visit Emergency Visit: Yes ED Registration Date: 11/26/16 Care time: The patient presented to the Emergency Department on the above date and was hospitalized for further evaluation of their emergent condition. - New Patient This patient is new to me today: Yes Date on this admission: 11/26/16 - Critical Care Critical Care patient: No
[2016-11-26] MEDS: SODIUM CHLORIDE 1,000 ML IV SCH (23:54)
[2016-11-27] MEDS ORDERED: PNEUMOC 13-VAL CONJ-DIP CRM/PF 0.5 ML DISP.SYRIN IM ONE (02:10)
[2016-11-27 02:19] VITALS: BMI 19.7
[2016-11-27] MEDS: PIPERACILLIN/TAZOB 3.375 GM 50 ML IVPB SCH ×3 (03:31→17:58)
[2016-11-27] MEDS: HEPARIN NA (PORCINE) 5,000 UNITS/ML 1ML VIAL SQ SCH ×2 (05:33→14:11)
[2016-11-27] MEDS ORDERED: METHADONE HCL 10 MG TABLET PO ONE ×3 (06:00→23:00)
[2016-11-27 06:53] LABS: CALCIUM 7.7 mg/dL (8.5-10.1); COCKROFT - GAULT 139.96; CREATININE 0.7 mg/dL (0.7-1.3); MAGNESIUM 2.5 mg/dL (1.8-2.4); PHOSPHOROUS 2.2 mg/dL (2.5-4.9)
[2016-11-27] MEDS: NICOTINE 7 MG/24 HOURS TOPICAL PATCH TD SCH ×2 (06:57→10:05)
[2016-11-27 07:20] LABS: TROPONIN I 2.48 ng/ml (0.00-0.05)
[2016-11-27] MEDS ORDERED: PNEUMOCOCCAL 23 VACCINE 0.5 ML VIAL IM ONE (09:00)
[2016-11-27] MEDS ORDERED: ACETAMINOPHEN 325 MG TABLET (FP) ONE (09:52)
[2016-11-27] MEDS ORDERED: ACETAMINOPHEN 325 MG TABLET (FP) PO ONE (10:00)
[2016-11-27] MEDS: SODIUM CHLORIDE 1,000 ML IV SCH (10:02)
[2016-11-27] MEDS ORDERED: METHADONE HCL 10 MG TABLET (FOR DETOX USE ONLY) PO ONE (10:06)
[2016-11-27] MEDS ORDERED: diazePAM 5 MG TABLET PO PRN (10:06)
--- NOTE | 2016-11-27 10:26 | CONSULT ---
Consult Detox [facility] Reason for Current Admission/Consult: Heroin withdrawal sx. Referred by:: Lakesha Lawson NP - History History of Present Illness: 21 y/o man with a 2 year hx. of heroin dependence is admitted with sepsis & elevated troponin levels.This pt. was in detox on 10/07/16 & signed out AMA on 10/08. - History Source History Provided By: Patient, Medical Record Limitations to Obtaining History: No Limitations - Alcohol/Substance Use Hx Alcohol Use: Yes (SOCIAL) - Current Drug/Alcohol Use Heroin Route: Injection Frequency: 3-6 times per week Amount used: 1/4gm Date of Last Use: 11/26/16 - Significant Medical Findings: Laboratory Results - last 24 hr 11/26/16 11/26/16 11/26/16 18:35 18:35 18:35 WBC 29.1 H D RBC 5.14 Hgb 13.2 Hct 40.5 MCV 78.8 L MCHC 32.5 RDW 14.3 Plt Count 131 L D MPV 8.7 D Neutrophils % 93.0 H D Lymphocytes % 3.0 L D Monocytes % 1.0 L D Band Neutrophils 3.0 Platelet Estimate Slt decreased INR 1.41 H VBG pH POC VBG pCO2 POC VBG pO2 Mixed VBG HCO3 Sodium 133 L Potassium 4.1 Chloride 94 L Carbon Dioxide 24 Anion Gap 15 BUN 18 D Creatinine 0.9 Creat Clearance w eGFR > 60 Random Glucose 143 H D Lactic Acid Calcium 8.5 Phosphorus Magnesium Total Bilirubin 1.1 H D AST 57 H D ALT 64 D Alkaline Phosphatase 281 H D Creatine Kinase 112 Troponin I 1.11 H* Total Protein 7.1 Albumin 2.9 L Urine Color Urine Appearance Urine pH Ur Specific [place] Urine Protein Urine Glucose (UA) Urine Ketones Urine Blood Urine Nitrite Urine Bilirubin Urine Urobilinogen Ur Leukocyte Esterase Urine RBC Urine WBC Ur Epithelial Cells Opiates Screen Methadone Screen Barbiturate Screen Phencyclidine Screen Ur Amphetamines Screen MDMA (Ecstasy) Screen Benzodiazepines Screen Cocaine Screen U Marijuana (THC) Screen HIV 1&2 Antibody Screen HIV P24 Antigen 11/26/16 11/26/16 11/26/16 18:45 18:54 19:05 WBC RBC Hgb Hct MCV MCHC RDW Plt Count MPV Neutrophils % Lymphocytes % Monocytes % Band Neutrophils Platelet Estimate INR VBG pH 7.43 H POC VBG pCO2 39.8 POC VBG pO2 46.1 Mixed VBG HCO3 26.1 H Sodium Potassium Chloride Carbon Dioxide Anion Gap BUN Creatinine Creat Clearance w eGFR Random Glucose Lactic Acid 2.2 H* Calcium Phosphorus Magnesium Total Bilirubin AST ALT Alkaline Phosphatase Creatine Kinase Troponin I Total Protein Albumin Urine Color Urine Appearance Urine pH Ur Specific [place] Urine Protein Urine Glucose (UA) Urine Ketones Urine Blood Urine Nitrite Urine Bilirubin Urine Urobilinogen Ur Leukocyte Esterase Urine RBC Urine WBC Ur Epithelial Cells Opiates Screen Methadone Screen Barbiturate Screen Phencyclidine Screen Ur Amphetamines Screen MDMA (Ecstasy) Screen Benzodiazepines Screen Cocaine Screen U Marijuana (THC) Screen HIV 1&2 Antibody Screen Negative HIV P24 Antigen Negative 11/26/16 11/26/16 11/27/16 20:56 21:00 05:35 WBC RBC Hgb Hct MCV MCHC RDW Plt Count MPV Neutrophils % Lymphocytes % Monocytes % Band Neutrophils Platelet Estimate INR VBG pH POC VBG pCO2 POC VBG pO2 Mixed VBG HCO3 Sodium 139 Potassium 3.6 Chloride 104 D Carbon Dioxide 23 Anion Gap 12 BUN 11 D Creatinine 0.7 D Creat Clearance w eGFR Random Glucose 108 H D Lactic Acid 1.4 Calcium 7.7 L Phosphorus 2.2 L Magnesium 2.5 H Total Bilirubin AST ALT Alkaline Phosphatase Creatine Kinase 124 Troponin I 2.48 H* D Total Protein Albumin Urine Color Yellow Urine Appearance Clear Urine pH 6.0 D Ur Specific [place] <= 1.005 Urine Protein 1+ H Urine Glucose (UA) Negative Urine Ketones Trace H Urine Blood 2+ H Urine Nitrite Negative Urine Bilirubin Negative Urine Urobilinogen Negative Ur Leukocyte Esterase Negative Urine RBC 2 Urine WBC 8 Ur Epithelial Cells Rare Opiates Screen Methadone Screen Barbiturate Screen Phencyclidine Screen Ur Amphetamines Screen MDMA (Ecstasy) Screen Benzodiazepines Screen Cocaine Screen U Marijuana (THC) Screen HIV 1&2 Antibody Screen HIV P24 Antigen 11/27/16 11/27/16 11:00 11:37 WBC RBC Hgb Hct MCV MCHC RDW Plt Count MPV Neutrophils % Lymphocytes % Monocytes % Band Neutrophils Platelet Estimate INR VBG pH POC VBG pCO2 POC VBG pO2 Mixed VBG HCO3 Sodium Potassium Chloride Carbon Dioxide Anion Gap BUN Creatinine Creat Clearance w eGFR Random Glucose Lactic Acid Calcium Phosphorus Magnesium Total Bilirubin AST ALT Alkaline Phosphatase Creatine Kinase Troponin I Total Protein Albumin Urine Color Urine Appearance Urine pH Ur Specific [place] Urine Protein Urine Glucose (UA) Urine Ketones Urine Blood Urine Nitrite Urine Bilirubin Urine Urobilinogen Ur Leukocyte Esterase Urine RBC Urine WBC Ur Epithelial Cells Opiates Screen Positive Methadone Screen Negative Barbiturate Screen Negative Phencyclidine Screen Negative Ur Amphetamines Screen Negative MDMA (Ecstasy) Screen Negative Benzodiazepines Screen Negative Cocaine Screen Negative U Marijuana (THC) Screen Positive HIV 1&2 Antibody Screen Negative HIV P24 Antigen Negative labs noted,UDS is positive for opiate COWS - Scale Resting Pulse: 4= MA > 121 Sweatin=Flushed/Facial Moisture Restless Observation: 1= Difficult to Sit Still Pupil Size: 1= Pupils >than Normal Bone or Joint Aches: 2= Severe Diffuse Aches Runny Nose/ Eye Tearin= Runny Nose/Eyes GI Upset > 30mins: 2= Nausea/Diarrhea Tremor Observation: 2= Slight Tremor Visible Yawning Observation: 1= 1-2x During Session Anxiety or Irritability: 2=Irritable/Anxious Goose Flesh Skin: 3=Piloerection COWS Score: 22 Assessment Plan - Diagnosis (1) Elevated troponin Status: Acute (2) Infectious endocarditis Status: Acute Qualifiers: Infective endocarditis organism: bacterial Chronicity: acute Qualified Code(s): I33.0 - Acute and subacute infective endocarditis (3) Cannabis dependence, uncomplicated Status: Acute (4) Opioid dependence with withdrawal Status: Acute - Plan Plan: Start detox with methadone taper.Pt. will be transferred to [facility] for CT surgery because Echo reveals vegetation on mitral valve and severe MR. - Medication Detox Regimen/Protocol: Methadone
[2016-11-27] MEDS ORDERED: CYCLOBENZAPRINE HCL 10 MG TABLET (FP) PO ONE (10:30)
[2016-11-27 13:05] LABS: URINE MARIJUANA THC POSITIVE ng/ml (CUTOFF=50)
--- NOTE | 2016-11-27 13:08 | EKG ---
Test Reason : Blood Pressure : / mmHG Vent. Rate : 122 BPM Atrial Rate : 122 BPM P-R Int : 136 ms QRS Dur : 088 ms QT Int : 326 ms P-R-T Axes : 068 068 066 degrees QTc Int : 464 ms SINUS TACHYCARDIA RIGHT ATRIAL ENLARGEMENT BORDERLINE ECG WHEN COMPARED WITH ECG OF 07-OCT-2016 01:11, VENT. RATE HAS INCREASED BY 60 BPM Confirmed by ANA GRUBBS MD ([id number]) on 11/27/2016 1:07:41 PM Referred By: Confirmed By:ANA GRUBBS MD
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
[2016-11-27] MEDS ORDERED: CYCLOBENZAPRINE HCL 10 MG TABLET (FP) PO SCH (14:00)
[2016-11-27 14:08] LABS: HIV 1 & 2 AB NEGATIVE; HIV 1 AGp24 NEGATIVE
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
[2016-11-27] MEDS ORDERED: ACETAMINOPHEN 325 MG TABLET (FP) PO PRN (15:19)
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
[2016-11-27] MEDS ORDERED: VANCOMYCIN 1,500 MG in DEXTROSE 5%-WATER - 500 ML IVPB ONE (19:04)
[2016-11-27] MEDS ORDERED: VANCOMYCIN 1 GRAM (PRE-DOCKED) 250 ML IVPB ONE (19:06)
[2016-11-27 19:32] VITALS: BP 139/53; PULSE 75; TEMP 100
[2016-11-27] MEDS ORDERED: diphenhydrAMINE HCL 25 MG CAPSULE (FP) PO SCH (22:00)
[2016-11-28] MEDS ORDERED: METHADONE HCL 10 MG TABLET PO ONE (10:00)
[2016-11-29] MEDS ORDERED: METHADONE HCL 5 MG TABLET PO ONE (10:00)
[2016-11-30] MEDS ORDERED: METHADONE HCL 5 MG TABLET PO ONE (10:00)
[2016-12-01] MEDS ORDERED: METHADONE HCL 10 MG TABLET PO ONE (10:00)
[2016-12-02] MEDS ORDERED: METHADONE HCL 5 MG TABLET PO ONE (06:00)
== END 2016-11-27 20:20 | disposition short-term general hospital (02) | DRG 193 ==
LOC: JER 17:09 → JERBED 20:25 → J4S 23:25
PROVIDERS: ADMIT Internal Medicine; ATTEND Nurse Practitioner Acute Care
DX: I33.0 Acute and subacute infective endocarditis (principal); F17.210 Nicotine dependence, cigarettes, uncomplicated; F11.23 Opioid dependence with withdrawal; F12.20 Cannabis dependence, uncomplicated; R50.9 Fever, unspecified; A41.9 Sepsis, unspecified organism; I34.0 Nonrheumatic mitral (valve) insufficiency
CPT/HCPCS: 36415; 71010-TC; 71250-TC; 72125-TC; 72128-TC; 72131-TC; 74176-TC; 80048; 80053; 80307; 81003; 81015; 82550; 82803; 83605; 83735; 84100; 84484; 85025; 85610; 87040; 87086; 87186; 87389; 93005; 93010; 93306-TC; 93971-TC; 99285-25; J1644

== ENCOUNTER 2017-06-09 13:16 | Emergency (ER) | payer OTHER ==
[2017-06-09 13:43] VITALS: BMI 20.5
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
[2017-06-09 14:36] LABS: BASOPHIL 0.6 % (0-2.0); EOSINOPHIL 2.9 % (0-4.5); MCH 25.8 pg (25.7-33.7); MCHC 31.9 g/dl (32.0-35.9); MEAN CELL VOLUME 80.7 fl (80-96); MEAN PLT VOLUME 7.7 fl (7.5-11.1); NEUTROPHILS 71.9 % (42.8-82.8); PLATELET COUNT 226 K/MM3 (134-434); RDW 14.9 % (11.9-15.9)
[2017-06-09 15:01] LABS: ALBUMIN 4.3 g/dl (3.4-5.0); ANION GAP 5 (8-16); BILIRUBIN,TOTAL 0.5 mg/dL (0.2-1.0); CALCIUM 9.6 mg/dL (8.5-10.1); CO2 32 mmol/L (21-32); CREATININE 0.8 mg/dL (0.7-1.3); GLUCOSE,RANDOM 88 mg/dL (74-106); SGOT/AST 20 U/L (15-37); SGPT/ALT 26 U/L (12-78)
[2017-06-09 15:04] LABS: ALK PHOS 120 U/L (45-117); CPK 100 IU/L (39-308); TROPONIN I < 0.02 ng/ml (0.00-0.05)
[2017-06-09 15:09] LABS: URINE APPEARANCE CLOUDY; URINE BILIRUBIN NEGATIVE (NEGATIVE); URINE BLOOD NEGATIVE (NEGATIVE); URINE COLOR YELLOW; URINE GLUCOSE (UA) NEGATIVE (NEGATIVE); URINE KETONE NEGATIVE (NEGATIVE); URINE NITRITE NEGATIVE (NEGATIVE); URINE PROTEIN NEGATIVE (NEGATIVE)
[2017-06-09 16:21] LABS: URINE MARIJUANA THC POSITIVE ng/ml (CUTOFF=50)
[2017-06-09 16:53] VITALS: BP 120/70; PULSE 73; TEMP 98.1
[2017-06-09 18:59] LABS: URINE LEUK ESTERASE Negative (NEGATIVE)
--- NOTE | 2017-06-10 07:44 | EKG ---
Test Reason : Blood Pressure : / mmHG Vent. Rate : 062 BPM Atrial Rate : 062 BPM P-R Int : 168 ms QRS Dur : 090 ms QT Int : 404 ms P-R-T Axes : 055 060 052 degrees QTc Int : 410 ms NORMAL SINUS RHYTHM POSSIBLE LEFT ATRIAL ENLARGEMENT T WAVE ABNORMALITY, CONSIDER ANTERIOR ISCHEMIA ABNORMAL ECG WHEN COMPARED WITH ECG OF 26-NOV-2016 18:46, VENT. RATE HAS DECREASED BY 60 BPM NON-SPECIFIC CHANGE IN ST SEGMENT IN ANTERIOR LEADS T WAVE AMPLITUDE HAS INCREASED IN LATERAL LEADS Confirmed by Jason Sullivan ([id number]) on 06/09/2017 2:37:18 PM Also confirmed by MD Nate, Jason ([id number]), manager editorial JASON RASCON ([id number]) on 06/10/2017 7:44:25 AM Referred By: Confirmed By:Jason Sullivan MD
== END 2017-06-09 16:29 | disposition home or self-care (01) ==
LOC: JER 13:16
DX: Z04.3 Encounter for examination and observation following other accident (principal); V43.52XA Car driver injured in collision with other type car in traffic accident, initial encounter; Y93.89 Activity, other specified; Y92.410 Unspecified street and highway as the place of occurrence of the external cause; F14.10 Cocaine abuse, uncomplicated; F41.8 Other specified anxiety disorders; F17.210 Nicotine dependence, cigarettes, uncomplicated
CPT/HCPCS: 36415; 70450-TC; 71010-TC; 80053; 80307; 81003; 82550; 84484; 85025; 93005; 93010; 99285-25

== ENCOUNTER 2022-07-07 10:32 | Emergency (ER) | payer OTHER ==
[2022-07-07 10:49] VITALS: BP 111/76; PULSE 59; RESP 20; TEMP 98.3; BMI 23.5
[2022-07-07] MEDS ORDERED: HIV POST EXPOSURE PROPHYLAXIS KIT PO ONE (10:50)
[2022-07-07] MEDS ORDERED: EMTRICITABINE 200MG/TENOFOVIR 300MG PO SCH (11:00)
[2022-07-07] MEDS ORDERED: RALTEGRAVIR POTASSIUM 400 MG TAB PO SCH (11:00)
[2022-07-07 11:25] LABS: ALBUMIN 4.4 g/dl (3.4-5.0); BILIRUBIN,TOTAL 1.2 mg/dl (0.2-1); CREATININE 0.9 mg/dl (0.55-1.3); TOT PROT 7.4 g/dl (6.4-8.2)
[2022-07-07 11:29] LABS: HEMATOCRIT 47.3 % (35.4-49); HEMOGLOBIN 15.6 G/dL (11.7-16.9); MCH 28.2 pg (25.7-33.7); MCHC 33.1 g/dl (32.0-35.9); MEAN CELL VOLUME 85.3 fl (80-96); MEAN PLT VOLUME 8.3 fl (7.5-11.1); PLATELET COUNT 200.9 10^3/uL (134-434); RBC 5.54 10^6/uL (4.00-5.60); RDW 15.1 % (11.9-15.9); WHITE BLOOD COUNT 11.3 10^3/uL (4.0-10.8)
== END 2022-07-07 11:15 | disposition home or self-care (01) ==
LOC: FER 10:32
DX: Z20.6 Contact with and (suspected) exposure to human immunodeficiency virus [HIV] (principal)
CPT/HCPCS: 36415; 80053; 85027; 99283-25

== ENCOUNTER 2024-12-07 00:28 | Emergency (ER) | payer BC, OTHER ==
[2024-12-07 00:39] VITALS: BP 96/72; PULSE 80; RESP 20; TEMP 97.5; BMI 21.2
[2024-12-07] MEDS: SODIUM CHLORIDE 1,000 ML IV ONE (02:11)
[2024-12-07 02:17] LABS: ABSOLUTE IMMATURE GRANULOCYTES 0.06 x10^3/uL (0.0-0.031); BASOPHILS # 0.04 x10^3/uL (0.01-0.08); EOSINOPHIL % 1.1 % (0.8-7.0); EOSINOPHILS # 0.15 x10^3/uL (0.04-0.54); HEMATOCRIT 48.4 % (40.1-51.0); HEMOGLOBIN 15.4 g/dL (13.7-17.5); MCHC 31.8 g/dl (32.3-36.5); MEAN CELL VOLUME 85.4 fl (79.0-92.2); MEAN PLT VOLUME 10.5 fl (9.4-12.4); MONOCYTE # 0.84 x10^3/uL (0.30-0.82); MONOCYTE % 6.3 % (5.3-12.2); PLATELET COUNT 203 x10^3/uL (163-337); RDW 13.2 % (11.9-15.3)
[2024-12-07 02:39] LABS: CALCIUM 9.3 mg/dL (8.5-10.1)
[2024-12-07 02:40] LABS: ALBUMIN 3.7 g/dl (3.4-5.0); BLOOD UREA NITROGEN 16.7 mg/dL (7-18)
[2024-12-07 02:43] LABS: CREATININE 0.9 mg/dL (0.55-1.3)
[2024-12-07 02:47] LABS: BILIRUBIN,TOTAL 0.6 mg/dL (0.2-1); TOT PROT 6.8 g/dl (6.4-8.2)
== END 2024-12-07 03:22 | disposition home or self-care (01) ==
LOC: JER 00:28
PROC: 3E0337Z Introduction of Electrolytic and Water Balance Substance into Peripheral Vein, Percutaneous Approach (ICD-10-PCS; principal; 2024-12-07)
DX: S00.81XA Abrasion of other part of head, initial encounter (principal); R55 Syncope and collapse; R00.0 Tachycardia, unspecified; R42 Dizziness and giddiness; W10.8XXA Fall (on) (from) other stairs and steps, initial encounter
CPT/HCPCS: 36415; 70450-TC; 80053; 85025; 93005; 93010; 99285-25